=== PATIENT | male | born 1960 | race African-American/Black ===

== ENCOUNTER 2021-01-25 15:20 | Inpatient (IN) ==
[2021-01-25] MEDS ORDERED: GLUCAGON 1 MG VIAL IM PRN (19:59)
[2021-01-25] MEDS ORDERED: ACETAMINOPHEN 325 MG TABLET PO PRN (19:59)
[2021-01-25] MEDS ORDERED: CALCIUM CARBONATE CHEW 500 MG TABLET PO PRN (19:59)
[2021-01-25] MEDS ORDERED: DEXTROSE 50% 25 GM/50 ML VIAL IV PRN ×2 (19:59→20:03)
[2021-01-25] MEDS ORDERED: DOCUSATE SODIUM 100 MG CAPSULE PO PRN (19:59)
[2021-01-25] MEDS ORDERED: hydrALAZINE 20 MG/1 ML VIAL IV PRN (19:59)
[2021-01-25] MEDS ORDERED: ONDANSETRON 4 MG/2 ML VIAL IV PRN (19:59)
[2021-01-25] MEDS ORDERED: PROMETHAZINE 25 MG TABLET PO PRN (20:03)
[2021-01-25] MEDS ORDERED: VANCOMYCIN INJ 2,000 MG in SODIUM CHLORIDE 0.9% 500 ML IV ONE (21:30)
[2021-01-25] MEDS: ENOXAPARIN 40 MG/0.4 ML SYRINGE SUBCUT SCH (21:55)
[2021-01-25] MEDS: INSULIN REGULAR 100 UNIT/ML SUBCUT SCH (21:55)
[2021-01-25] MEDS: ZALEPLON 5 MG CAPSULE PO PRN (22:49)
[2021-01-26 05:21] LABS: Basophils % 0.2 % (0.0-0.8); Eosinophils % 0.1 % (0.00-10.9); Hematocrit 34.7 VOL% (42.0-52.0); Hemoglobin 11.4 GM/DL (14.0-18.0); Immature Granulocytes % 1.5 %; Immature Granulocytes Absolute 0.27 #; Lymphocytes % 10.9 % (21.2-54.2); Mean Corpuscular HGB Conc 32.9 GM/DL (32-36); Monocytes % 12.1 % (1.7-12.7); Neutrophils % 75.2 % (38.7-73.9); Platelet Count 179 T/CUMM (130-400); Red Blood Count 4.39 MC/CUMM (3.8-5.5); Red Cell Distribution Width 20.1 % (9.3-17.3); White Blood Count 18.3 T/CUMM (4-12)
[2021-01-26 05:49] LABS: Calcium 8.9 MG/DL (8.5-10.1); Osmolality,Calculated 272.2 MOS/KG (273-304); Potassium 4.1 MMOL/L (3.5-5.1)
[2021-01-26 05:50] LABS: Albumin 2.2 G/DL (3.4-5.0); Bilirubin,Direct 0.14 MG/DL (0.0-0.20); Bilirubin,Indirect 0.5 MG/DL (0.0-1.0); Bilirubin,Total 0.6 MG/DL (0.2-1.0); Total Protein 7.4 G/DL (6.4-8.2)
[2021-01-26] MEDS: INSULIN REGULAR 100 UNIT/ML SUBCUT SCH ×4 (09:45→21:05)
[2021-01-26] MEDS: PANTOPRAZOLE 40 MG TABLET PO SCH (09:46)
[2021-01-26] MEDS: VANCOMYCIN INJ 1,250 MG in SODIUM CHLORIDE 0.9% 250 ML IV SCH ×2 (09:47→21:07)
[2021-01-26] MEDS ORDERED: TEMAZEPAM 7.5 MG CAPSULE PO PRN (14:31)
[2021-01-26] MEDS: INSULIN GLARGINE 100 UNIT/ML SUBCUT SCH (21:05)
[2021-01-26] MEDS: ENOXAPARIN 40 MG/0.4 ML SYRINGE SUBCUT SCH (21:05)
[2021-01-27 06:43] LABS: Basophils # 0.1 10*3/uL (0.0-0.2); Basophils % 0.2 % (0.0-0.8); Eosinophils % 0.1 % (0.00-10.9); Hematocrit 35.4 VOL% (42.0-52.0); Hemoglobin 11.7 GM/DL (14.0-18.0); Immature Granulocytes % 1.2 %; Immature Granulocytes Absolute 0.28 #; Lymphocytes # 2.1 10*3/uL (1.4-4.0); Mean Corpuscular HGB Conc 33.1 GM/DL (32-36); Mean Corpuscular Volume 78.5 FL (87-102); Monocytes % 10.7 % (1.7-12.7); Neutrophils % 78.8 % (38.7-73.9); Platelet Count 192 T/CUMM (130-400); Red Blood Count 4.51 MC/CUMM (3.8-5.5); Red Cell Distribution Width 20.1 % (9.3-17.3); White Blood Count 22.9 T/CUMM (4-12)
[2021-01-27 07:05] LABS: Hypochromasia 1+; Lymphocytes 3 % (20-55); Microcytosis 1+; Platelet Estimate Adequate; Segmented Neutrophils 84 % (50-85); Total Cells Counted 100
[2021-01-27 07:07] LABS: Calcium 8.9 MG/DL (8.5-10.1); Osmolality,Calculated 268.4 MOS/KG (273-304); Potassium 4.2 MMOL/L (3.5-5.1)
[2021-01-27 07:22] LABS: Calcium 8.8 MG/DL (8.5-10.1); Osmolality,Calculated 266.5 MOS/KG (273-304); Potassium 4.3 MMOL/L (3.5-5.1)
[2021-01-27] MEDS: INSULIN REGULAR 100 UNIT/ML SUBCUT SCH ×4 (08:56→21:21)
[2021-01-27] MEDS: PANTOPRAZOLE 40 MG TABLET PO SCH (08:57)
[2021-01-27] MEDS: VANCOMYCIN INJ 1,250 MG in SODIUM CHLORIDE 0.9% 250 ML IV SCH ×2 (09:04→21:22)
[2021-01-27] MEDS: SODIUM HYPOCHLORITE 0.25% IRRIG 473 ML BOTTLE TOP SCH (10:00)
[2021-01-27] MEDS: INSULIN GLARGINE 100 UNIT/ML SUBCUT SCH (21:21)
[2021-01-27] MEDS: ENOXAPARIN 40 MG/0.4 ML SYRINGE SUBCUT SCH (21:22)
[2021-01-27] MEDS: ZALEPLON 5 MG CAPSULE PO PRN (23:43)
[2021-01-28 04:50] LABS: Basophils % 0.2 % (0.0-0.8); Eosinophils % 0.2 % (0.00-10.9); Hematocrit 35.7 VOL% (42.0-52.0); Hemoglobin 11.5 GM/DL (14.0-18.0); Immature Granulocytes % 1.2 %; Immature Granulocytes Absolute 0.24 #; Lymphocytes # 2.1 10*3/uL (1.4-4.0); Lymphocytes % 10.7 % (21.2-54.2); Mean Corpuscular HGB Conc 32.2 GM/DL (32-36); Mean Corpuscular Volume 79.3 FL (87-102); Mean Platelet Volume 9.7 FL (9.6-12.0); Monocytes % 12.2 % (1.7-12.7); Neutrophils % 75.5 % (38.7-73.9); Platelet Count 230 T/CUMM (130-400); White Blood Count 19.9 T/CUMM (4-12)
[2021-01-28 05:15] LABS: Calcium 9.3 MG/DL (8.5-10.1); Osmolality,Calculated 266.7 MOS/KG (273-304); Potassium 4.2 MMOL/L (3.5-5.1)
[2021-01-28] MEDS ORDERED: NAFCILLIN 2,000 MG in SODIUM CHLORIDE 0.9% 100 ML IV SCH (10:00)
[2021-01-28] MEDS: PANTOPRAZOLE 40 MG TABLET PO SCH (10:51)
[2021-01-28] MEDS: SODIUM HYPOCHLORITE 0.25% IRRIG 473 ML BOTTLE TOP SCH (10:52)
[2021-01-28] MEDS: INSULIN REGULAR 100 UNIT/ML SUBCUT SCH ×4 (10:52→21:36)
[2021-01-28] MEDS: VANCOMYCIN INJ 1,250 MG in SODIUM CHLORIDE 0.9% 250 ML IV SCH (11:10)
[2021-01-28] MEDS: NAFCILLIN 2,000 MG in SODIUM CHLORIDE 0.9% 100 ML IV SCH ×3 (13:53→21:37)
[2021-01-28] MEDS: metFORMIN 500 MG TABLET PO SCH (18:01)
[2021-01-28] MEDS: INSULIN GLARGINE 100 UNIT/ML SUBCUT SCH (21:35)
[2021-01-28] MEDS: ENOXAPARIN 40 MG/0.4 ML SYRINGE SUBCUT SCH (21:36)
[2021-01-29] MEDS: NAFCILLIN 2,000 MG in SODIUM CHLORIDE 0.9% 100 ML IV SCH ×4 (03:21→14:05)
[2021-01-29 05:40] LABS: Basophils # 0.1 10*3/uL (0.0-0.2); Basophils % 0.4 % (0.0-0.8); Eosinophils % 0.2 % (0.00-10.9); Hematocrit 36.8 VOL% (42.0-52.0); Hemoglobin 12.4 GM/DL (14.0-18.0); Immature Granulocytes % 1.3 %; Immature Granulocytes Absolute 0.22 #; Lymphocytes # 1.8 10*3/uL (1.4-4.0); Lymphocytes % 10.8 % (21.2-54.2); Mean Corpuscular HGB Conc 33.7 GM/DL (32-36); Mean Corpuscular Volume 78.6 FL (87-102); Mean Platelet Volume 9.5 FL (9.6-12.0); Monocytes % 12.9 % (1.7-12.7); Neutrophils % 74.4 % (38.7-73.9); Platelet Count 246 T/CUMM (130-400); Red Blood Count 4.68 MC/CUMM (3.8-5.5); Red Cell Distribution Width 20.4 % (9.3-17.3); White Blood Count 17.1 T/CUMM (4-12)
[2021-01-29 06:10] LABS: Calcium 9.5 MG/DL (8.5-10.1); Osmolality,Calculated 268.4 MOS/KG (273-304); Potassium 4.6 MMOL/L (3.5-5.1)
[2021-01-29 06:26] LABS: Calcium 9.6 MG/DL (8.5-10.1); Osmolality,Calculated 270.2 MOS/KG (273-304); Potassium 4.5 MMOL/L (3.5-5.1)
[2021-01-29] MEDS: PANTOPRAZOLE 40 MG TABLET PO SCH (09:12)
[2021-01-29] MEDS: metFORMIN 500 MG TABLET PO SCH (09:12)
[2021-01-29] MEDS: INSULIN REGULAR 100 UNIT/ML SUBCUT SCH ×2 (09:13→12:43)
[2021-01-29] MEDS: SODIUM HYPOCHLORITE 0.25% IRRIG 473 ML BOTTLE TOP SCH (09:18)
[2021-01-29 13:23] VITALS: BP 112/81
== END 2021-01-29 15:47 | disposition home or self-care (01) | DRG 315 ==
LOC: N.4E → SUATTDRO 17:29
PROVIDERS: ADMIT Internal Medicine; ATTEND Internal Medicine

== ENCOUNTER 2021-02-13 15:45 | Inpatient (IN) ==
[2021-02-13] MEDS ORDERED: SODIUM CHLORIDE 0.9% 1,000 ML IV STA (16:02)
[2021-02-13] MEDS ORDERED: SODIUM CHLORIDE 0.9% 2,550 ML IV ONE (16:36)
[2021-02-13] MEDS ORDERED: ACETAMINOPHEN 650 MG SUPP RECTAL STA (16:53)
[2021-02-13 16:56] LABS: Basophils % 0.1 % (0.0-0.8); Eosinophils # 0.1 10*3/uL (0.0-0.87); Eosinophils % 0.7 % (0.00-10.9); Hematocrit 28.7 VOL% (42.0-52.0); Hemoglobin 9.7 GM/DL (14.0-18.0); Immature Granulocytes % 1.6 %; Immature Granulocytes Absolute 0.33 #; Lymphocytes # 1.6 10*3/uL (1.4-4.0); Mean Corpuscular HGB Conc 33.8 GM/DL (32-36); Mean Corpuscular Volume 74.9 FL (87-102); Mean Platelet Volume 9.6 FL (9.6-12.0); Monocytes % 8.3 % (1.7-12.7); NRBC # 0.05 10*3/uL; Neutrophils % 81.3 % (38.7-73.9); Platelet Count 325 T/CUMM (130-400); Red Blood Count 3.83 MC/CUMM (3.8-5.5); Red Cell Distribution Width 19.4 % (9.3-17.3); White Blood Count 20.6 T/CUMM (4-12)
[2021-02-13] MEDS ORDERED: VANCOMYCIN INJ 1,250 MG in SODIUM CHLORIDE 0.9% 250 ML IV SCH (17:00)
[2021-02-13] MEDS: PIPERACILLIN/TAZOBACTAM 3,375 MG in SODIUM CHLORIDE 0.9% 100 ML IV SCH (17:15)
[2021-02-13 17:36] LABS: Bacteria,Urine Occasional /HPF (Few); Blood, Urine Negative (Negative); Glucose,Urine (UA) 50 mg/dL (Negative); Ketones,Urine Negative (Negative); Mucus,Urine Occasional /LPF (Occasional); Nitrite,Urine Negative (Negative); Protein,Urine 30 MG/DL; RBC,Urine 1 /HPF (0-4); Urine Appearance CLOUDY (Clear); Urine Color Amber (Yellow); Urine Specific Gravity 1.018 (1.001-1.035)
[2021-02-13 17:37] LABS: Bilirubin,Urine Small mg/dL (Negative)
[2021-02-13 17:40] LABS: Lymphocytes 8 % (20-55); Segmented Neutrophils 87 % (50-85); Total Cells Counted 100
[2021-02-13 17:40] LABS: Albumin 1.3 G/DL (3.4-5.0); Bilirubin,Total 2.2 MG/DL (0.20-1.00); Calcium 10.8 MG/DL (8.5-10.1); Osmolality,Calculated 271.5 MOS/KG (273-304); Potassium 5.4 MMOL/L (3.5-5.1); Total Protein 6.7 G/DL (6.4-8.2)
[2021-02-13 17:41] LABS: Hypochromasia Slight; Microcytosis 1+; Platelet Estimate Normal
[2021-02-13] MEDS: VANCOMYCIN INJ 1,250 MG in SODIUM CHLORIDE 0.9% 250 ML IV SCH (18:15)
[2021-02-13] MEDS ORDERED: GLUCAGON 1 MG VIAL IM PRN ×2 (19:11)
[2021-02-13] MEDS ORDERED: DEXTROSE 50% 25 GM/50 ML VIAL IV PRN (19:11)
[2021-02-13] MEDS ORDERED: ONDANSETRON 4 MG/2 ML VIAL IV PRN (19:11)
[2021-02-13 20:13] LABS: ABG Base Excess -0.7 MMOL/L (-2.5-2.5); ABG HCO3 23.5 MMOL/L (20-26); ABG Oxygen Saturation 82.5 % (95-100); ABG PCO2 46.3 MM HG (35-48); ABG PH 7.346 (7.35-7.45); ABG PO2 53.7 MM HG (80-95); ABG TCO2 22.7 MMOL/L (23-27); Allen Test Positive; Pt O2 Delivery Device Simple Mask
[2021-02-13] MEDS: ENOXAPARIN 40 MG/0.4 ML SYRINGE SUBCUT SCH (20:32)
[2021-02-13] MEDS: SODIUM CHLORIDE 0.9% 1,000 ML IV SCH (20:32)
[2021-02-13] MEDS: LEVOFLOXACIN INJ 750 MG/150 ML PREMIX IV SCH (20:32)
[2021-02-13] MEDS: INSULIN LISPRO 100 UNIT/ML SUBCUT SCH (21:42)
[2021-02-13 23:39] LABS: ABG Base Excess 0.6 MMOL/L (-2.5-2.5); ABG HCO3 23.6 MMOL/L (20-26); ABG PCO2 31.6 MM HG (35-48); ABG PH 7.491 (7.35-7.45); ABG PO2 62.1 MM HG (80-95); ABG TCO2 24.6 MMOL/L (23-27); Allen Test Positive; Pt O2 Delivery Device Other
[2021-02-14] MEDS ORDERED: ACETAMINOPHEN 500 MG TABLET PO SCH
[2021-02-14] MEDS: ALBUTEROL/IPRATROPIUM 3 ML NEB RESP TX SCH ×4 (00:46→19:34)
[2021-02-14] MEDS: PIPERACILLIN/TAZOBACTAM 3,375 MG in SODIUM CHLORIDE 0.9% 100 ML IV SCH (02:20)
[2021-02-14 04:21] LABS: Basophils % 0.2 % (0.0-0.8); Eosinophils # 0.2 10*3/uL (0.0-0.87); Eosinophils % 0.9 % (0.00-10.9); Hematocrit 26.5 VOL% (42.0-52.0); Hemoglobin 8.8 GM/DL (14.0-18.0); Immature Granulocytes % 1.6 %; Lymphocytes # 1.7 10*3/uL (1.4-4.0); Lymphocytes % 9.3 % (21.2-54.2); Mean Corpuscular HGB Conc 33.2 GM/DL (32-36); Mean Platelet Volume 9.6 FL (9.6-12.0); Monocytes % 10.4 % (1.7-12.7); NRBC # 0.06 10*3/uL; Neutrophils % 77.6 % (38.7-73.9); Platelet Count 305 T/CUMM (130-400); Red Blood Count 3.44 MC/CUMM (3.8-5.5); Red Cell Distribution Width 19.7 % (9.3-17.3); White Blood Count 18.4 T/CUMM (4-12)
[2021-02-14] MEDS: SODIUM CHLORIDE 0.9% 1,000 ML IV SCH ×3 (04:22→19:50)
[2021-02-14 04:38] LABS: Albumin 1.2 G/DL (3.4-5.0); Bilirubin,Total 2.3 MG/DL (0.20-1.00); Calcium 9.4 MG/DL (8.5-10.1); Osmolality,Calculated 282.1 MOS/KG (273-304); Potassium 4.8 MMOL/L (3.5-5.1); Total Protein 6.6 G/DL (6.4-8.2)
[2021-02-14] MEDS: INSULIN LISPRO 100 UNIT/ML SUBCUT SCH ×4 (07:26→21:30)
[2021-02-14 09:03] LABS: ABG Base Excess 0.6 MMOL/L (-2.5-2.5); ABG HCO3 21.1 MMOL/L (20-26); ABG Oxygen Saturation 96.4 % (95-100); ABG PCO2 24.6 MM HG (35-48); ABG PH 7.552 (7.35-7.45); ABG PO2 71.5 MM HG (80-95); ABG TCO2 21.9 MMOL/L (23-27)
[2021-02-14] MEDS: MEROPENEM 500 MG in SODIUM CHLORIDE 0.9% 100 ML IV SCH ×2 (09:19→14:57)
[2021-02-14] MEDS: PANTOPRAZOLE 40 MG VIAL IV SCH (09:19)
[2021-02-14] MEDS: ACETAMINOPHEN 650 MG SUPP RECTAL PRN (11:26)
[2021-02-14] MEDS: VANCOMYCIN INJ 1,250 MG in SODIUM CHLORIDE 0.9% 250 ML IV SCH (12:17)
[2021-02-14] MEDS: KETOROLAC 30 MG/1 ML VIAL IV PRN (15:08)
[2021-02-14] MEDS: ENOXAPARIN 40 MG/0.4 ML SYRINGE SUBCUT SCH (19:50)
[2021-02-14] MEDS: LEVOFLOXACIN INJ 750 MG/150 ML PREMIX IV SCH (19:50)
[2021-02-15] MEDS: ALBUTEROL/IPRATROPIUM 3 ML NEB RESP TX SCH ×4 (01:05→18:34)
[2021-02-15] MEDS: MEROPENEM 500 MG in SODIUM CHLORIDE 0.9% 100 ML IV SCH ×4 (02:56→17:00)
[2021-02-15 04:37] LABS: Basophils % 0.2 % (0.0-0.8); Eosinophils # 0.3 10*3/uL (0.0-0.87); Eosinophils % 1.4 % (0.00-10.9); Hematocrit 25.4 VOL% (42.0-52.0); Hemoglobin 8.6 GM/DL (14.0-18.0); Immature Granulocytes % 1.7 %; Lymphocytes # 0.9 10*3/uL (1.4-4.0); Lymphocytes % 5.2 % (21.2-54.2); Mean Corpuscular HGB Conc 33.9 GM/DL (32-36); Mean Platelet Volume 9.8 FL (9.6-12.0); Monocytes % 7.4 % (1.7-12.7); NRBC # 0.07 10*3/uL; Neutrophils % 84.1 % (38.7-73.9); Platelet Count 308 T/CUMM (130-400); Red Blood Count 3.34 MC/CUMM (3.8-5.5); White Blood Count 17.7 T/CUMM (4-12)
[2021-02-15 04:58] LABS: Bilirubin,Total 3.5 MG/DL (0.20-1.00); Calcium 8.8 MG/DL (8.5-10.1); Potassium 5.7 MMOL/L (3.5-5.1); Total Protein 6.1 G/DL (6.4-8.2)
[2021-02-15 05:05] LABS: Band Neutrophils 11 % (0-10); Lymphocytes 6 % (20-55); Nucleated Red Blood Cells 1 (0-5); Segmented Neutrophils 72 % (50-85); Total Cells Counted 100
[2021-02-15 05:06] LABS: Hypochromasia 1+; Microcytosis 1+
[2021-02-15 05:07] LABS: Target Cells Slight
[2021-02-15] MEDS: VANCOMYCIN INJ 1,250 MG in SODIUM CHLORIDE 0.9% 250 ML IV SCH (05:37)
[2021-02-15] MEDS: SODIUM CHLORIDE 0.9% 1,000 ML IV SCH ×4 (05:37→21:45)
[2021-02-15] MEDS: INSULIN LISPRO 100 UNIT/ML SUBCUT SCH ×4 (08:31→21:12)
[2021-02-15] MEDS: PANTOPRAZOLE 40 MG VIAL IV SCH (08:32)
[2021-02-15] MEDS: OSELTAMIVIR 30 MG CAPSULE PO SCH ×2 (12:29→21:34)
[2021-02-15] MEDS: KETOROLAC 30 MG/1 ML VIAL IV PRN (16:59)
[2021-02-15] MEDS: ENOXAPARIN 30 MG/0.3 ML SYRINGE SUBCUT SCH (21:34)
[2021-02-16] MEDS: ALBUTEROL/IPRATROPIUM 3 ML NEB RESP TX SCH ×4 (00:17→21:38)
[2021-02-16] MEDS: MEROPENEM 500 MG in SODIUM CHLORIDE 0.9% 100 ML IV SCH ×3 (01:37→16:55)
[2021-02-16 04:35] LABS: Basophils # 0.1 10*3/uL (0.0-0.2); Basophils % 0.2 % (0.0-0.8); Eosinophils # 0.2 10*3/uL (0.0-0.87); Eosinophils % 0.9 % (0.00-10.9); Hematocrit 23.9 VOL% (42.0-52.0); Hemoglobin 7.9 GM/DL (14.0-18.0); Immature Granulocytes % 1.8 %; Immature Granulocytes Absolute 0.39 #; Lymphocytes % 4.8 % (21.2-54.2); Mean Corpuscular HGB Conc 33.1 GM/DL (32-36); Mean Corpuscular Volume 76.4 FL (87-102); Mean Platelet Volume 9.5 FL (9.6-12.0); Monocytes % 7.6 % (1.7-12.7); NRBC # 0.05 10*3/uL; Neutrophils % 84.7 % (38.7-73.9); Platelet Count 297 T/CUMM (130-400); Red Blood Count 3.13 MC/CUMM (3.8-5.5); White Blood Count 21.2 T/CUMM (4-12)
[2021-02-16] MEDS: SODIUM CHLORIDE 0.9% 1,000 ML IV SCH ×5 (04:47→20:52)
[2021-02-16 04:57] LABS: Bilirubin,Total 3.9 MG/DL (0.20-1.00); Calcium 8.2 MG/DL (8.5-10.1); Osmolality,Calculated 296.5 MOS/KG (273-304); Potassium 5.7 MMOL/L (3.5-5.1)
[2021-02-16 05:02] LABS: Eosinophils 1 % (0-10); Lymphocytes 5 % (20-55); Platelet Estimate Adequate; Segmented Neutrophils 92 % (50-85); Total Cells Counted 100
[2021-02-16 05:03] LABS: Hypochromasia 1+; Microcytosis 1+
[2021-02-16] MEDS: VANCOMYCIN INJ 1,250 MG in SODIUM CHLORIDE 0.9% 250 ML IV SCH (05:15)
[2021-02-16] MEDS: PANTOPRAZOLE 40 MG VIAL IV SCH (08:31)
[2021-02-16] MEDS: KETOROLAC 30 MG/1 ML VIAL IV PRN (08:31)
[2021-02-16] MEDS: OSELTAMIVIR 30 MG CAPSULE PO SCH ×2 (08:31→22:03)
[2021-02-16] MEDS: INSULIN LISPRO 100 UNIT/ML SUBCUT SCH ×4 (08:46→22:02)
[2021-02-16] MEDS: NOREPINEPHRINE 8 MG in SODIUM CHLORIDE 0.9% 242 ML IV PRN (13:36)
[2021-02-16] MEDS: LEVOFLOXACIN INJ 750 MG/150 ML PREMIX IV SCH (20:51)
[2021-02-16] MEDS: ENOXAPARIN 30 MG/0.3 ML SYRINGE SUBCUT SCH (22:02)
[2021-02-17] MEDS: ALBUTEROL/IPRATROPIUM 3 ML NEB RESP TX SCH ×4 (01:11→18:48)
[2021-02-17] MEDS: MEROPENEM 500 MG in SODIUM CHLORIDE 0.9% 100 ML IV SCH ×3 (01:14→17:40)
[2021-02-17] MEDS: SODIUM CHLORIDE 0.9% 1,000 ML IV SCH ×3 (05:00→20:16)
[2021-02-17 05:09] LABS: Basophils % 0.1 % (0.0-0.8); Eosinophils # 0.2 10*3/uL (0.0-0.87); Eosinophils % 0.7 % (0.00-10.9); Hematocrit 24.9 VOL% (42.0-52.0); Hemoglobin 8.2 GM/DL (14.0-18.0); Immature Granulocytes % 2.5 %; Immature Granulocytes Absolute 0.56 #; Lymphocytes % 4.4 % (21.2-54.2); Mean Corpuscular HGB Conc 32.9 GM/DL (32-36); Mean Corpuscular Volume 76.6 FL (87-102); Mean Platelet Volume 9.8 FL (9.6-12.0); Monocytes % 6.8 % (1.7-12.7); NRBC # 0.05 10*3/uL; Neutrophils % 85.5 % (38.7-73.9); Platelet Count 283 T/CUMM (130-400); Red Blood Count 3.25 MC/CUMM (3.8-5.5); White Blood Count 22.2 T/CUMM (4-12)
[2021-02-17 05:20] LABS: Albumin 0.9 G/DL (3.4-5.0); Calcium 8.6 MG/DL (8.5-10.1); Total Protein 5.8 G/DL (6.4-8.2)
[2021-02-17 05:36] LABS: Eosinophils 1 % (0-10); Hypochromasia 1+; Lymphocytes 2 % (20-55); Microcytosis 1+; Nucleated Red Blood Cells 1 (0-5); Platelet Estimate Adequate; Segmented Neutrophils 94 % (50-85); Total Cells Counted 100
[2021-02-17] MEDS: NOREPINEPHRINE 8 MG in SODIUM CHLORIDE 0.9% 242 ML IV PRN (05:53)
[2021-02-17] MEDS: VANCOMYCIN INJ 1,250 MG in SODIUM CHLORIDE 0.9% 250 ML IV SCH (05:55)
[2021-02-17] MEDS: INSULIN LISPRO 100 UNIT/ML SUBCUT SCH ×4 (09:10→20:44)
[2021-02-17] MEDS: PANTOPRAZOLE 40 MG VIAL IV SCH (09:11)
[2021-02-17] MEDS: OSELTAMIVIR 30 MG CAPSULE PO SCH ×2 (09:11→20:44)
[2021-02-17] MEDS: ENOXAPARIN 30 MG/0.3 ML SYRINGE SUBCUT SCH (20:44)
[2021-02-17] MEDS: KETOROLAC 30 MG/1 ML VIAL IV PRN (20:45)
[2021-02-18] MEDS: MEROPENEM 500 MG in SODIUM CHLORIDE 0.9% 100 ML IV SCH ×3 (00:06→17:34)
[2021-02-18] MEDS: ALBUTEROL/IPRATROPIUM 3 ML NEB RESP TX SCH ×4 (00:38→19:47)
[2021-02-18] MEDS: SODIUM CHLORIDE 0.9% 1,000 ML IV SCH (03:01)
[2021-02-18 05:27] LABS: Basophils % 0.1 % (0.0-0.8); Eosinophils # 0.2 10*3/uL (0.0-0.87); Eosinophils % 0.9 % (0.00-10.9); Hematocrit 23.6 VOL% (42.0-52.0); Hemoglobin 7.7 GM/DL (14.0-18.0); Immature Granulocytes % 3.4 %; Immature Granulocytes Absolute 0.75 #; Lymphocytes # 1.2 10*3/uL (1.4-4.0); Lymphocytes % 5.2 % (21.2-54.2); Mean Corpuscular HGB Conc 32.6 GM/DL (32-36); Mean Corpuscular Volume 76.6 FL (87-102); Mean Platelet Volume 9.4 FL (9.6-12.0); Monocytes % 8.3 % (1.7-12.7); NRBC # 0.06 10*3/uL; Neutrophils % 82.1 % (38.7-73.9); Platelet Count 207 T/CUMM (130-400); Red Blood Count 3.08 MC/CUMM (3.8-5.5); Red Cell Distribution Width 20.6 % (9.3-17.3); White Blood Count 22.3 T/CUMM (4-12)
[2021-02-18 05:53] LABS: Eosinophils 1 % (0-10); Hypochromasia 1+; Lymphocytes 8 % (20-55); Microcytosis Slight; Platelet Estimate Normal; Segmented Neutrophils 86 % (50-85); Total Cells Counted 100
[2021-02-18 06:02] LABS: Albumin 0.8 G/DL (3.4-5.0); Bilirubin,Total 4.3 MG/DL (0.20-1.00); Calcium 8.6 MG/DL (8.5-10.1); Osmolality,Calculated 303.8 MOS/KG (273-304); Potassium 4.6 MMOL/L (3.5-5.1); Total Protein 5.4 G/DL (6.4-8.2)
[2021-02-18] MEDS: VANCOMYCIN INJ 1,250 MG in SODIUM CHLORIDE 0.9% 250 ML IV SCH (06:17)
[2021-02-18] MEDS: PANTOPRAZOLE 40 MG VIAL IV SCH (08:24)
[2021-02-18] MEDS: OSELTAMIVIR 30 MG CAPSULE PO SCH ×2 (09:20→22:33)
[2021-02-18] MEDS: INSULIN LISPRO 100 UNIT/ML SUBCUT SCH ×4 (09:24→22:33)
[2021-02-18] MEDS: PANTOPRAZOLE 40 MG TABLET PO SCH (10:37)
[2021-02-18] MEDS: SODIUM BICARB INJ 100 MEQ in DEXTROSE 5% 1,000 ML IV SCH ×3 (10:39→23:27)
[2021-02-18] MEDS ORDERED: SODIUM CHLORIDE 0.9% 1,000 ML IV ONE (12:24)
[2021-02-18] MEDS: MENTHOL/ZINC OXIDE OINT 71 GM JAR TOP SCH ×2 (15:54→22:34)
[2021-02-18] MEDS: ENOXAPARIN 30 MG/0.3 ML SYRINGE SUBCUT SCH (22:29)
[2021-02-18] MEDS: LEVOFLOXACIN INJ 750 MG/150 ML PREMIX IV SCH (22:34)
[2021-02-19] MEDS: ALBUTEROL/IPRATROPIUM 3 ML NEB RESP TX SCH ×4 (00:05→19:33)
[2021-02-19] MEDS: MEROPENEM 500 MG in SODIUM CHLORIDE 0.9% 100 ML IV SCH ×2 (01:30→08:45)
[2021-02-19 05:15] LABS: Basophils % 0.1 % (0.0-0.8); Eosinophils # 0.1 10*3/uL (0.0-0.87); Eosinophils % 0.6 % (0.00-10.9); Hematocrit 23.5 VOL% (42.0-52.0); Hemoglobin 7.6 GM/DL (14.0-18.0); Immature Granulocytes % 4.3 %; Immature Granulocytes Absolute 0.91 #; Lymphocytes # 1.4 10*3/uL (1.4-4.0); Lymphocytes % 6.6 % (21.2-54.2); Mean Corpuscular HGB Conc 32.3 GM/DL (32-36); Mean Corpuscular Volume 77.3 FL (87-102); Mean Platelet Volume 9.4 FL (9.6-12.0); NRBC # 0.06 10*3/uL; Neutrophils % 77.4 % (38.7-73.9); Platelet Count 182 T/CUMM (130-400); Red Blood Count 3.04 MC/CUMM (3.8-5.5); Red Cell Distribution Width 20.8 % (9.3-17.3); White Blood Count 21.3 T/CUMM (4-12)
[2021-02-19 05:42] LABS: Albumin 0.8 G/DL (3.4-5.0); Bilirubin,Total 5.2 MG/DL (0.20-1.00); Calcium 8.8 MG/DL (8.5-10.1); Osmolality,Calculated 311.8 MOS/KG (273-304); Potassium 4.1 MMOL/L (3.5-5.1); Total Protein 5.6 G/DL (6.4-8.2)
[2021-02-19] MEDS: SODIUM BICARB INJ 100 MEQ in DEXTROSE 5% 1,000 ML IV SCH ×3 (05:43→19:55)
[2021-02-19 06:06] LABS: Band Neutrophils 1 % (0-10); Eosinophils 1 % (0-10); Lymphocytes 5 % (20-55); Nucleated Red Blood Cells 1 (0-5); Segmented Neutrophils 83 % (50-85); Total Cells Counted 100
[2021-02-19 06:07] LABS: Hypochromasia 2+; Platelet Estimate Normal; Target Cells 1+
[2021-02-19 06:08] LABS: Polychromasia Few
[2021-02-19 06:09] LABS: Spherocytes 1+
[2021-02-19] MEDS: PANTOPRAZOLE 40 MG TABLET PO SCH (08:22)
[2021-02-19] MEDS: INSULIN LISPRO 100 UNIT/ML SUBCUT SCH ×4 (08:22→22:15)
[2021-02-19] MEDS: OSELTAMIVIR 30 MG CAPSULE PO SCH ×2 (08:22→22:13)
[2021-02-19] MEDS ORDERED: LACTATED RINGERS 1,000 ML IV ONE (09:30)
[2021-02-19] MEDS: MENTHOL/ZINC OXIDE OINT 71 GM JAR TOP SCH ×2 (15:33→22:19)
[2021-02-19] MEDS ORDERED: VANCOMYCIN INJ 1,250 MG in SODIUM CHLORIDE 0.9% 250 ML IV SCH (18:00)
[2021-02-19] MEDS: ENOXAPARIN 30 MG/0.3 ML SYRINGE SUBCUT SCH (22:15)
[2021-02-20] MEDS: ALBUTEROL/IPRATROPIUM 3 ML NEB RESP TX SCH ×4 (00:13→19:38)
[2021-02-20] MEDS: SODIUM BICARB INJ 100 MEQ in DEXTROSE 5% 1,000 ML IV SCH ×2 (05:47→14:52)
[2021-02-20 06:10] LABS: Eosinophils % 0.9 % (0.00-10.9); Hemoglobin 7.2 GM/DL (14.0-18.0); Lymphocytes % 7.8 % (21.2-54.2); Monocytes % 9.7 % (1.7-12.7)
[2021-02-20 06:24] LABS: Basophils % 0.1 % (0.0-0.8); Eosinophils # 0.2 10*3/uL (0.0-0.87); Hematocrit 22.3 VOL% (42.0-52.0); Immature Granulocytes % 5.5 %; Lymphocytes # 1.6 10*3/uL (1.4-4.0); Mean Corpuscular HGB Conc 32.3 GM/DL (32-36); Mean Corpuscular Volume 75.9 FL (87-102); Mean Platelet Volume 10.3 FL (9.6-12.0); NRBC # 0.05 10*3/uL; Platelet Count 147 T/CUMM (130-400); Red Blood Count 2.94 MC/CUMM (3.8-5.5); Red Cell Distribution Width 20.7 % (9.3-17.3); White Blood Count 20.1 T/CUMM (4-12)
[2021-02-20 06:29] LABS: Albumin 0.8 G/DL (3.4-5.0); Bilirubin,Total 5.7 MG/DL (0.20-1.00); Calcium 8.9 MG/DL (8.5-10.1); Osmolality,Calculated 315.7 MOS/KG (273-304); Potassium 4.1 MMOL/L (3.5-5.1); Total Protein 5.5 G/DL (6.4-8.2)
[2021-02-20 06:43] LABS: Anisocytosis 2+; Atypical Lymphocytes Few; Band Neutrophils 8 % (0-10); Eosinophils 1 % (0-10); Lymphocytes 14 % (20-55); Metamyelocytes 1 %; Myelocytes 2 %; Platelet Estimate Adequate; Segmented Neutrophils 64 % (50-85); Total Cells Counted 100
[2021-02-20 06:44] LABS: Poikilocytosis Slight; Target Cells 2+
[2021-02-20] MEDS: INSULIN LISPRO 100 UNIT/ML SUBCUT SCH ×4 (09:23→21:22)
[2021-02-20] MEDS: PANTOPRAZOLE 40 MG TABLET PO SCH (09:23)
[2021-02-20] MEDS: MENTHOL/ZINC OXIDE OINT 71 GM JAR TOP SCH ×2 (09:24→21:19)
[2021-02-20] MEDS ORDERED: SODIUM CHLORIDE 0.9% 1,000 ML IV PRN (14:04)
[2021-02-20] MEDS: MORPHINE 2 MG/1 ML SYRINGE IV PRN ×2 (14:21→21:01)
[2021-02-20] MEDS ORDERED: LINEZOLID INJ 600 MG/300 ML PREMIX IV SCH (14:30)
[2021-02-20] MEDS: LINEZOLID INJ 600 MG/300 ML PREMIX IV SCH (15:32)
[2021-02-20] MEDS: ACETAMINOPHEN 650 MG SUPP RECTAL PRN (17:19)
[2021-02-20] MEDS: LEVOFLOXACIN INJ 750 MG/150 ML PREMIX IV SCH (21:19)
[2021-02-20] MEDS: ENOXAPARIN 30 MG/0.3 ML SYRINGE SUBCUT SCH (21:20)
[2021-02-21] MEDS: ALBUTEROL/IPRATROPIUM 3 ML NEB RESP TX SCH ×4 (01:43→19:15)
[2021-02-21] MEDS: MORPHINE 2 MG/1 ML SYRINGE IV PRN ×2 (01:43→05:33)
[2021-02-21] MEDS: SODIUM BICARB INJ 100 MEQ in DEXTROSE 5% 1,000 ML IV SCH ×3 (03:41→18:12)
[2021-02-21 05:52] LABS: Basophils # 0.1 10*3/uL (0.0-0.2); Basophils % 0.3 % (0.0-0.8); Eosinophils # 0.2 10*3/uL (0.0-0.87); Hematocrit 26.6 VOL% (42.0-52.0); Immature Granulocytes % 5.1 %; Immature Granulocytes Absolute 1.06 #; Lymphocytes # 1.5 10*3/uL (1.4-4.0); Mean Corpuscular HGB Conc 33.1 GM/DL (32-36); Mean Corpuscular Volume 76.7 FL (87-102); Mean Platelet Volume 10.4 FL (9.6-12.0); Monocytes % 8.9 % (1.7-12.7); NRBC # 0.02 10*3/uL; Neutrophils % 77.7 % (38.7-73.9); Platelet Count 112 T/CUMM (130-400); Red Cell Distribution Width 20.8 % (9.3-17.3); White Blood Count 20.9 T/CUMM (4-12)
[2021-02-21 05:55] LABS: Hemoglobin 8.8 GM/DL (14.0-18.0); Red Blood Count 3.47 MC/CUMM (3.8-5.5)
[2021-02-21 06:14] LABS: Albumin 0.8 G/DL (3.4-5.0); Bilirubin,Total 7.5 MG/DL (0.20-1.00); Calcium 8.9 MG/DL (8.5-10.1); Potassium 4.5 MMOL/L (3.5-5.1); Total Protein 5.4 G/DL (6.4-8.2)
[2021-02-21 06:23] LABS: Eosinophils 2 % (0-10); Hypochromasia 1+; Lymphocytes 7 % (20-55); Microcytosis 1+; Segmented Neutrophils 82 % (50-85); Target Cells 1+; Total Cells Counted 100
[2021-02-21 06:24] LABS: Platelet Estimate Decreased; Polychromasia Slight
[2021-02-21] MEDS: INSULIN LISPRO 100 UNIT/ML SUBCUT SCH ×4 (08:08→22:49)
[2021-02-21] MEDS: PANTOPRAZOLE 40 MG TABLET PO SCH (09:21)
[2021-02-21] MEDS: MENTHOL/ZINC OXIDE OINT 71 GM JAR TOP SCH ×2 (09:23→22:51)
[2021-02-21] MEDS: LINEZOLID INJ 600 MG/300 ML PREMIX IV SCH (10:00)
[2021-02-21] MEDS: ENOXAPARIN 30 MG/0.3 ML SYRINGE SUBCUT SCH (22:51)
[2021-02-22] MEDS: ALBUTEROL/IPRATROPIUM 3 ML NEB RESP TX SCH ×4 (00:50→19:45)
[2021-02-22] MEDS ORDERED: FUROSEMIDE 40 MG/4 ML VIAL IV ONE (01:34)
[2021-02-22 05:14] LABS: Basophils # 0.1 10*3/uL (0.0-0.2); Basophils % 0.3 % (0.0-0.8); Eosinophils # 0.2 10*3/uL (0.0-0.87); Eosinophils % 0.8 % (0.00-10.9); Hematocrit 25.9 VOL% (42.0-52.0); Hemoglobin 8.7 GM/DL (14.0-18.0); Immature Granulocytes % 3.8 %; Immature Granulocytes Absolute 0.71 #; Lymphocytes # 1.4 10*3/uL (1.4-4.0); Lymphocytes % 7.3 % (21.2-54.2); Mean Corpuscular HGB Conc 33.6 GM/DL (32-36); Mean Corpuscular Volume 75.5 FL (87-102); Mean Platelet Volume 10.4 FL (9.6-12.0); Monocytes % 7.6 % (1.7-12.7); NRBC # 0.04 10*3/uL; Neutrophils % 80.2 % (38.7-73.9); Platelet Count 86 T/CUMM (130-400); Red Blood Count 3.43 MC/CUMM (3.8-5.5); Red Cell Distribution Width 20.9 % (9.3-17.3); White Blood Count 18.9 T/CUMM (4-12)
[2021-02-22 05:59] LABS: Calcium 8.9 MG/DL (8.5-10.1); Osmolality,Calculated 304.1 MOS/KG (273-304); Potassium 4.5 MMOL/L (3.5-5.1)
[2021-02-22 06:35] LABS: Anisocytosis 1+; Eosinophils 2 % (0-10); Hypochromasia 1+; Lymphocytes 5 % (20-55); Microcytosis 1+; Nucleated Red Blood Cells 1 (0-5); Segmented Neutrophils 84 % (50-85); Total Cells Counted 100
[2021-02-22 06:36] LABS: Platelet Estimate Decreased; Polychromasia Slight; Target Cells Few
[2021-02-22] MEDS: INSULIN LISPRO 100 UNIT/ML SUBCUT SCH ×4 (07:07→21:27)
[2021-02-22] MEDS: MENTHOL/ZINC OXIDE OINT 71 GM JAR TOP SCH ×2 (08:58→20:44)
[2021-02-22] MEDS: PANTOPRAZOLE 40 MG TABLET PO SCH (08:58)
[2021-02-22] MEDS: DEXTROSE 50% 25 GM/50 ML VIAL IV PRN (11:06)
[2021-02-22] MEDS: ACETAMINOPHEN 650 MG SUPP RECTAL PRN (11:29)
[2021-02-22] MEDS ORDERED: SODIUM CHLORIDE 0.45% 1,000 ML IV SCH (12:00)
[2021-02-22] MEDS: ENOXAPARIN 30 MG/0.3 ML SYRINGE SUBCUT SCH (20:43)
[2021-02-22] MEDS: LEVOFLOXACIN INJ 750 MG/150 ML PREMIX IV SCH (20:43)
[2021-02-23] MEDS: ALBUTEROL/IPRATROPIUM 3 ML NEB RESP TX SCH ×4 (00:35→19:35)
[2021-02-23 05:34] LABS: Basophils # 0.1 10*3/uL (0.0-0.2); Basophils % 0.2 % (0.0-0.8); Eosinophils # 0.2 10*3/uL (0.0-0.87); Hematocrit 25.3 VOL% (42.0-52.0); Hemoglobin 8.3 GM/DL (14.0-18.0); Immature Granulocytes % 3.1 %; Immature Granulocytes Absolute 0.68 #; Lymphocytes # 1.3 10*3/uL (1.4-4.0); Mean Corpuscular HGB Conc 32.8 GM/DL (32-36); Mean Platelet Volume 10.6 FL (9.6-12.0); Monocytes % 6.9 % (1.7-12.7); NRBC # 0.03 10*3/uL; Neutrophils % 82.8 % (38.7-73.9); Platelet Count 101 T/CUMM (130-400); Red Blood Count 3.33 MC/CUMM (3.8-5.5)
[2021-02-23 06:05] LABS: Calcium 8.7 MG/DL (8.5-10.1); Potassium 4.7 MMOL/L (3.5-5.1)
[2021-02-23 06:06] LABS: Anisocytosis 2+; Band Neutrophils 9 % (0-10); Eosinophils 1 % (0-10); Hypersegmented Neutrophil SLIGHT; Lymphocytes 11 % (20-55); Osmolality,Calculated 311.8 MOS/KG (273-304); Platelet Estimate Adequate; Polychromasia Slight; Segmented Neutrophils 72 % (50-85); Total Cells Counted 100
[2021-02-23 06:07] LABS: Macrocytosis 1+; Target Cells 1+
[2021-02-23] MEDS: DEXTROSE 50% 25 GM/50 ML VIAL IV PRN ×3 (06:25→20:22)
[2021-02-23] MEDS: INSULIN LISPRO 100 UNIT/ML SUBCUT SCH ×4 (07:28→20:23)
[2021-02-23] MEDS: PANTOPRAZOLE 40 MG TABLET PO SCH (08:37)
[2021-02-23] MEDS: MENTHOL/ZINC OXIDE OINT 71 GM JAR TOP SCH ×2 (08:37→20:23)
[2021-02-23] MEDS: ACETAMINOPHEN 650 MG SUPP RECTAL PRN (11:32)
[2021-02-23] MEDS ORDERED: LORazepam 2 MG/1 ML VIAL IV PRN (11:56)
[2021-02-23] MEDS: MORPHINE 2 MG/1 ML SYRINGE IV PRN ×2 (12:17→19:27)
[2021-02-23] MEDS: ENOXAPARIN 30 MG/0.3 ML SYRINGE SUBCUT SCH (20:22)
[2021-02-24] MEDS: ALBUTEROL/IPRATROPIUM 3 ML NEB RESP TX SCH ×2 (00:30→07:20)
[2021-02-24] MEDS: MORPHINE 2 MG/1 ML SYRINGE IV PRN ×3 (04:26→17:12)
[2021-02-24] MEDS: ACETAMINOPHEN 650 MG SUPP RECTAL PRN ×2 (05:11→12:58)
[2021-02-24] MEDS: DEXTROSE 50% 25 GM/50 ML VIAL IV PRN (07:31)
[2021-02-24] MEDS: INSULIN LISPRO 100 UNIT/ML SUBCUT SCH ×2 (08:22→11:32)
[2021-02-24] MEDS: PANTOPRAZOLE 40 MG TABLET PO SCH (08:23)
[2021-02-24] MEDS: MENTHOL/ZINC OXIDE OINT 71 GM JAR TOP SCH (09:18)
[2021-02-24] MEDS ORDERED: ALBUTEROL/IPRATROPIUM 3 ML NEB RESP TX PRN (12:45)
[2021-02-24 16:00] VITALS: BP 47/20
== END 2021-02-24 19:45 | disposition expired | DRG 871 ==
LOC: EDUNIT# → EDBD → N.ED 15:45 → SUATTDRO 19:11 → N.EDINP 19:11 → N.ICU 02-15 00:06 → N.3E 02-19 15:03
PROVIDERS: ADMIT Internal Medicine; ATTEND Hospitalist